=== PATIENT | female | born 1980 | race Caucasian/White ===

== ENCOUNTER 2020-01-12 08:24 | Emergency (ER) | payer OTHER ==
[~2020-01-12] VITALS: Ht 147.3 cm; Wt 52.3 kg
[~2020-01-12 08:24] MED LIST: BAYER CHEWABLE81 MG PO; DILTIAZEM 24HR120 M3; DILTIAZEM 24HR180 M4; IBANDRONATE SO150 MG PO; VITAMIN B-121000 MCG PO; VITAMIN D1000 UNI1 PO
[2020-01-12 08:35] VITALS: Ht 147.3 cm; Wt 52.3 kg
[2020-01-12 09:10] VITALS: BP 116/72
[2020-01-12] MEDS ORDERED: ZANAFLEX2 M1 PO (09:53)
== END 2020-01-12 09:11 | disposition home or self-care (01) ==
LOC: D.ER 08:24
DX: E16.2 Hypoglycemia, unspecified (principal); R53.1 Weakness

== ENCOUNTER 2020-01-12 09:27 | Day surgery (SDC) | payer OTHER ==
[2020-01-10 11:36] LABS: BASOPHILS 0.1 % (0-2); EOSINOPHILS 0.4 % (0-7); HEMATOCRIT 44.6 % (36.0-48.0); HEMOGLOBIN 14.8 g/dL (12-16); IMMATURE GRANULOCYTES 0.4 % (0-5); LYMPHOCYTES 22.8 % (15-50); MCH 35.1 pg (26.0-34.0); MCHC 33.2 g/dL (31.0-37.0); MCV 105.7 fL (80.0-100.0); MEAN PLATELET VOLUME 9.7 fL (7.4-10.4); MONOCYTES 5.8 % (2-11); NEUTROPHILS 70.5 % (40-80); PLATELET COUNT 160 10x3/uL (130-400); RBC 4.22 10x6/uL (4.00-5.40); RDW 13.1 % (11.5-14.5)
[2020-01-10 12:33] LABS: UDS - AMPHET NEGATIVE QUAL (NEGATIVE); UDS - BARB POSITIVE QUAL (NEGATIVE); UDS - BENZO NEGATIVE QUAL (NEGATIVE); UDS - COCAINE NEGATIVE QUAL (NEGATIVE); UDS - OPIATE NEGATIVE QUAL (NEGATIVE); UDS - PCP NEGATIVE QUAL (NEGATIVE); UDS - THC NEGATIVE QUAL (NEGATIVE)
[~2020-01-12] VITALS: Ht 147.3 cm; Wt 51.7 kg
--- NOTE | ~2020-01-12 | OP ---
PATIENT NAME: MANOJ LARIOS MEDICAL RECORD: [id number] :79 LOCATION:D.[facility] ADMISSION DATE: SURGEON: EFRAÍN CAMPOS MD DATE OF OPERATION: 01/12/2020 PREOPERATIVE DIAGNOSIS: Dysfunctional uterine bleeding. POSTOPERATIVE DIAGNOSIS: Dysfunctional uterine bleeding. PROCEDURES: 1. Hysteroscopy. 2. Dilation and curettage. 3. Thermal ablation using NovaSure. SURGEON: Efraín Campos MD ANESTHESIOLOGIST: Dr. Bone. ANESTHETIC: General. FINDINGS: The uterus sounded to 5.5 cm and is 3.5 cm in width in the uterine cavity. Lush endometrium without discrete polypoid masses or abnormal-appearing tissues. Both ostia were identified. Cervix was unremarkable along with the vaginal vault, moderate amount of magaña brown tissue returned at the time of curettage. SPECIMENS REMOVED: Endometrial curetting. SPECIMEN DISPOSITION: Pathology. ESTIMATED BLOOD LOSS: Less than or equal to 75 cc. FLUIDS: 750 cc of lactated Ringer's. URINE OUTPUT: Quantity sufficient void prior to this procedure. COMPLICATIONS: None. DRAINS: None. INDICATIONS: The patient is a 39-year-old female with dysfunctional uterine bleeding. The patient has been offered conservative therapy and after counseling desires thermal ablation using the NovaSure device. The risks, benefits and limitations of this procedure have been described. DESCRIPTION OF PROCEDURE: After informed consent was assured, the patient was taken to the operating room where anesthetic was obtained. The patient was now prepped and draped and has been placed in [facility] stirrups. The operative speculum was now introduced in the vagina. The cervix grasped with a single single-toothed tenaculum, placed on gentle traction and dilated to accommodate a 12-degree hysteroscope. This was passed into the uterine cavity under direct visualization with the above findings. After survey of the uterine cavity was complete, the cervix was dilated further to accommodate a #1 curette. This curette was passed gently to the fundus and then pressure applied against the uterine wall and withdrawn until good cry was obtained. This was performed OPERATIVE REPORT [id number] MANOJ LARIOS throughout the uterine cavity. After sufficient curettage and tissue has been removed from the field and passed to the attendant, the NovaSure device was opened. The NovaSure sound was used to obtain the cavity length. The width was now obtained after placing the NovaSure device inside the uterus and exposing the array. The numbers are placed into the NovaSure device and after a successful test sequence therapy began and completed in 45 seconds. Device was now removed. The cervix has continued bleeding at the puncture site where a single tooth tenaculum held at the 3 o'clock position. A 2-0 chromic was used to obtain hemostasis here. Sponge, lap, and needle counts correct times 2. The patient was awakened and went to the recovery room in stable condition. TRANSINT:[id number] Voice Confirmation ID: [id number] DOCUMENT ID: [id number] EFRAÍN CAMPOS MD CC: [id number] DICTATION DATE: 01/12/20 1217 FUND DEVELOPMENT MANAGER: 01/12/20 1640 [facility] 01/12/20 [facility] [address] [place] [address]
[2020-01-12] MEDS ORDERED: ZANAFLEX2 M1 PO (09:53)
[2020-01-12 09:55] VITALS: BP 128/80; Ht 147.3 cm; Wt 51.7 kg
[2020-01-12 10:22] LABS: HCG URINE NEGATIVE (NEGATIVE)
--- NOTE | 2020-01-12 13:52 | NUR ---
DC INSTRUCTIONS GIVEN TO PT. STATES UNDERSTANDING. WILL CONTINUE TO MONITOR.
--- NOTE | 2020-01-12 14:13 | NUR ---
PT VOIDED. DC'D IV CATH FULLY INTACT.
--- NOTE | 2020-01-12 14:36 | NUR ---
PT READY AT 1415. WAITING FOR FRIEND TO PICK HER UP.
--- NOTE | 2020-01-12 15:10 | NUR ---
PT LEFT UNIT VIA WC AT 1450
== END 2020-01-12 14:50 | disposition home or self-care (01) ==
LOC: D.OPS 09:27 → D.PAN 12:00 → D.OPS 12:00
PROVIDERS: ATTEND Obstetrics & Gynecology
DX: N93.8 Other specified abnormal uterine and vaginal bleeding (principal); I25.2 Old myocardial infarction; N93.9 Abnormal uterine and vaginal bleeding, unspecified

== ENCOUNTER 2020-02-22 10:59 | Outpatient (CLI) | payer OTHER ==
[2020-01-12 09:55] VITALS: BMI 23.8
[~2020-02-22 10:59] MED LIST changes: +ZANAFLEX2 M1 PO
--- NOTE | 2020-02-22 11:00 | NUR ---
DR CAMPOS PHONES UNIT STATING HE IS SENDING PT DOWN FROM CLINIC, ORDER RECEIVED TO DRAW STAT CBC WITH DIFF, STAT EKG, AND CALL WITH RESULTS.
--- NOTE | 2020-02-22 11:12 | NUR ---
LAB TO ROOM TO DRAW STAT CBC. EKG COMPLETED ORDERED. WILL NOTIFY
[2020-02-22 11:25] VITALS: BP 136/69
[2020-02-22 11:29] LABS: HEMATOCRIT 39.9 % (36.0-48.0); HEMOGLOBIN 13.7 g/dL (12-16); MCH 35.4 pg (26.0-34.0); MCHC 34.3 g/dL (31.0-37.0); MCV 103.1 fL (80.0-100.0); PLATELET COUNT 130 10x3/uL (130-400); RBC 3.87 10x6/uL (4.00-5.40); RDW 11.9 % (11.5-14.5); WBC 6.5 10x3/uL (4.8-10.8)
--- NOTE | 2020-02-22 11:50 | NUR ---
DR CAMPOS PHONED WITH CBC RESULTS WELL EKG AND VS. ORDER RECEIVED FOR DISCHARGE TO HOME WITH INSTRUCTIONS TO KEEP F/U APPOINTMENT WITH HIM. INFORMED PT ALSO STATES SHE HAS ECHOCARDIOGRAM SCHED WITH HER CLINICAL STUDY MANAGER TOMORROW. WILL PROCEED WITH DISCHARGE ORDERED.
--- NOTE | 2020-02-22 12:05 | NUR ---
PT GIVEN D/C INSTRUCTIONS WITH APPOINTMENT REMINDER FOR F/U WITH DR CAMPOS. PT VERBALIZES UNDERSTANDING AND DENIES QUESTIONS. PT UP TO DRESS FOR D/C TO HOME.
--- NOTE | 2020-02-22 12:15 | NUR ---
PT OFF UNIT AMBULATORY WITH D/C INSTRUCTIONS IN HAND.
[2020-02-22 14:03] LABS: LYMPHOCYTES 27 % (15-50); MONOCYTES 5 % (2-11); NEUTROPHILS 68 % (40-80); PLATELET ESTIMATE NORMAL
== END 2020-02-22 12:15 | disposition home or self-care (01) ==
LOC: D.LDO 10:59
PROVIDERS: ATTEND Obstetrics & Gynecology
DX: N93.9 Abnormal uterine and vaginal bleeding, unspecified (principal)

== ENCOUNTER 2020-12-11 14:57 | Observation (INO) | payer OTHER ==
[~2020-12-11] VITALS: Ht 147.3 cm; Wt 50.9 kg
--- NOTE | 2020-12-11 15:05 | NUR ---
PT RECEIVED VIA W/C FROM [facility] FOR ADMIT FOR PELVIC PAIN. PT AAOx3, TO BED, TURNS TO LEFT SIDE, GRIMACING AND C/O PAIN. DR CAMPOS PHONES AND SPEAKS WITH ANIMAL HEALTH TECHNICIANHENRY BAY RN AND STATES HE WILL ENTER ORDERS IN [employer].
[2020-12-11 15:42] LABS: BASOPHILS 0.1 % (0-2); EOSINOPHILS 0 % (0-7); HEMATOCRIT 42.3 % (36.0-48.0); HEMOGLOBIN 14.2 g/dL (12-16); IMMATURE GRANULOCYTES 0.1 % (0-5); LYMPHOCYTE ABS# 0.53 10x3/uL (1.18-3.74); LYMPHOCYTES 6.7 % (15-50); MCH 33.7 pg (26.0-34.0); MCHC 33.6 g/dL (31.0-37.0); MCV 100.5 fL (80.0-100.0); MEAN PLATELET VOLUME 10.5 fL (7.4-10.4); MONOCYTES 0.5 % (2-11); NEUTROPHIL ABS# 7.36 10x3/uL (1.56-6.13); NEUTROPHILS 92.6 % (40-80); PLATELET COUNT 150 10x3/uL (130-400); RBC 4.21 10x6/uL (4.00-5.40); RDW 12.5 % (11.5-14.5)
--- NOTE | 2020-12-11 16:15 | NUR ---
18G PIV INITIATED TO PT'S RIGHT WRIST x1 ATTEMPT BY THIS RN. LR FLUID BOLUS INITIATED.
--- NOTE | 2020-12-11 16:20 | NUR ---
PT UP TO BR TO PROVIDE UA PER ORDER WELL FOR URINE PREG TEST PER ORDER.
[2020-12-11 16:24] LABS: ALBUMIN 4.1 g/dL (3.4-5.0); ALKALINE PHOSPHATASE 87 U/L (30-120); ALT (SGPT) 52 U/L (10-68); BILIRUBIN - TOTAL 0.43 mg/dL (0.2-1.3); CALC OSMOLALITY 279 mosm/kg (275-300); CARBON DIOXIDE 27.6 mmol/L (21.0-32.0); CHLORIDE - SERUM 104 mmol/L (98-107); CREATININE - SERUM 0.8 mg/dL (0.6-1.3); GLUCOSE 110 mg/dL (74-106); PROTEIN - SERUM 6.8 g/dL (6.4-8.2); SODIUM 140 mmol/L (136-145); UREA NITROGEN 12 mg/dL (7-18); eGFR NON AFRICAN AMERICAN 84 mL/min (90-120)
--- NOTE | 2020-12-11 16:32 | NUR ---
DEMEROL AND PHENERGAN ADMIN ORDERED FOR PAIN, SEE EMAR FOR DOC. PT RATING PAIN 8/10, GRIMACING AND GUARDING ABD.
--- NOTE | 2020-12-11 16:53 | NUR ---
U/S STAFF TO ROOM FOR ORDERED PELVIC/TRANSVAG U/S. PT VERBALIZES PAIN RELIEF, RATES PAIN 4/10 AT THIS TIME.
--- NOTE | 2020-12-11 17:05 | NUR ---
PT RECEIVED VIA W/C FROM [facility] FOR ADMIT FOR PELVIC PAIN. PT AAOx3, TO BED, TURNS TO LEFT SIDE, GRIMACING AND C/O PAIN. DR CAMPOS PHONES AND SPEAKS WITH RV SERVICE TECHNICIANHENRY BAY RN AND STATES HE WILL ENTER ORDERS IN [employer].
[2020-12-11 17:30] VITALS: BP 115/79
--- NOTE | 2020-12-11 17:30 | NUR ---
VSS, SEE FLOWSHEET FOR DOC.
--- NOTE | 2020-12-11 17:32 | NUR ---
DR CAMPOS PHONES UNIT, STATES HE JUST SPOKE WITH U/S STAFF AND WILL WAIT UNTIL TOMORROW TO TAKE PT TO O.R. ORDER RECEIVED FOR REGULAR DIET, NPO AFTER MIDNIGHT, ZOFRAN IV 4MG Q4HPRN NAUSEA, PERCOCET 5/325MG PO Q4HPRN MILD TO MODERATE PAIN, PERCOCET 10/325MG PO Q4HPRN MOD TO SEVERE PAIN, AND ADMIN 30MG TORADOL IVP x1 NOW. STATES HE IS SIGNING OUT TO DR LUJAN FOR THE NIGHT.
[2020-12-11 17:39] LABS: BILIRUBIN NEGATIVE (NEGATIVE); HCG URINE NEGATIVE (NEGATIVE); KETONE NEGATIVE (NEGATIVE); NITRITE NEGATIVE (NEGATIVE); UROBILINOGEN NORMAL mg/dL (< 2)
--- NOTE | 2020-12-11 18:12 | NUR ---
TORADOL ADMIN IV ORDERED, SEE EMAR FOR DOC. IV FLUSHED AND SALINE LOCKED, UPDATED ON POC, REG DIET AND NOTHING BY MOUTH AFTER MIDNIGHT. UNDERSTANDING VERBALIZED. SRUx2, CL IN REACH.
[2020-12-11 19:50] VITALS: BP 115/79; BP 133/80; Ht 147.3 cm; Wt 50.9 kg
--- NOTE | 2020-12-11 19:50 | NUR ---
ASSESSMENT PER FLOW SHEET, VS OBTAINED, SALINE LOCK IN RIGHT WRIST INTACT COVERED WITH WRAP, PT C/O LOWER RIGHT ABD PAIN, INFORMED PT THAT I WILL ADM PAIN MED WHEN DUE, PT VERBALIZES UNDERSTANDING, PT REPORTS FLATUS, BM TODAY AND VOIDING WITH NO DIFFICULTY, PT REQUESTS SOMETHING TO EAT AND DRINK, INFORMED PT THAT I WILL SEE IF I HAVE A SANDWICH TRAY, PT REPORTS NOT EATING ALL DAY
--- NOTE | 2020-12-11 20:17 | NUR ---
ADM PERCOCET PER MD ORDERS, SEE EMAR, PT SERVED SANDWICH TRAY, H20, AND APPLE JUICE, DENIES FURTHER NEEDS
--- NOTE | 2020-12-11 21:25 | NUR ---
PT FIRE TENDER LIGHT, PT IN TEARS, REPORTS PAIN, REQUESTS TYLENOL, INFORMED PT THAT I WOULD HAVE TO CALL LIGHT THE DOCTOR REGARDING TYLENOL, PT VERBALIZES UNDERSTANDING, PT REPORTS THAT THE PERCOCET MIGHT BE MAKING HER "HURT WORSE" BECAUSE SHE NEEDS TO EAT MORE, PT HAD CONSUMED WHOLE SANDWICH TRAY, PT SERVED PUDDING AND APPLESAUCE
--- NOTE | 2020-12-11 21:30 | NUR ---
DR LUJAN ON L&D UNIT, REPORT OF PT'S PAIN AND REQUEST FOR TYLENOL, DR LUJAN PLACED ORDERS IN COMPUTER
--- NOTE | 2020-12-11 21:50 | NUR ---
PT INFORMED OF ORDERS, PT STATES "OH, I FEEL BETTER NOW, I JUST NEEDED TO EAT MORE BECAUSE OF THAT PAIN PILL", PT REFUSES THE TYLENOL OR PROTONIX AT THIS TIME
--- NOTE | 2020-12-11 22:30 | NUR ---
PT RESTING, REPORTS FEELING MUCH BETTER AND GETTING TIRED, PT REQUESTS PAIN MED WHEN DUE THOUGH, INFORMED PT THAT I TILL BE AROUND MIDNIGHT, PT ALSO INFORMED AGAIN ABOUT NPO AFTER MIDNIGHT, PT VERBALIZES UNDERSTANDING, DENIES NEEDS AT THIS TIME
[2020-12-11 23:44] VITALS: BP 95/73
--- NOTE | 2020-12-11 23:44 | NUR ---
PT SUGAR COATING HAND LIGHT, PT INQUIRES ABOUT PUTTING HER APPLE JUICE IN THE REFRIGERATOR, INFORMED PT THAT I COULD NOT, PT VERBALIZES UNDERSTANDING, VS OBTAINED, PT DENIES PAIN AT THIS TIME, RATES PAIN 0/10, PT REQUESTS NOT TO BE WOKEN UP AT 4AM FOR VITAL SIGNS, PT INST TO USE CALL LIGHT IF SHE WAKES UP FOR NEED OF PAIN MED AND THAT I WILL DUE VITALS AT THAT TIME, PT VERBALIZES UNDERSTANDING, PT INST ON NPO AT MIDNIGHT, PT FINISHES DRINKING APPLE JUICE, CUPS TO TRASH, PT DENIES FURTHER NEEDS
[2020-12-12] VITALS (9 sets, daily range): BP systolic 111–144; BP diastolic 66–87
--- NOTE | 2020-12-12 02:20 | NUR ---
PT RESTING WITH EYES CLOSED, RESP QUIET, NO DISTRESS NOTED, LEFT UNDISTURBED AT THIS TIME
--- NOTE | 2020-12-12 02:36 | NUR ---
PT COBOL PROGRAMMER LIGHT, C/O PAIN, SALINE LOCK FLUSHED, ADM DEMEROL DILUTED IN 5MLS OF NS, SALINE LOCK FLUSHED AFTER MED, PT LENO WELL, VS OBTAINED AT THIS TIME BECAUSE PT REQUESTS NOT TO BE WOKEN UP, PT REQUESTED AND PROVIDED MOUTH MOISTURIZE, DENIES FURTHER NEEDS
--- NOTE | 2020-12-12 04:18 | NUR ---
PT WEB APPLICATION TESTER LIGHT, PT UP TO BR WITH ASSISTANCE, GAIT STEADY, VOIDED LARGE AMOUNT WITH NO DIFFICULTY, PT TO SINK TO WASH HANDS, PT BACK TO BED, DENIES FURTHER NEEDS OR PAIN AT THIS TIME, BED IN LOW POSITION, SIDE RAILS X 2, CALL LIGHT IN REACH
--- NOTE | 2020-12-12 06:23 | NUR ---
PT RESTING WITH EYES CLOSED, RESP QUIET, NO DISTRESS NOTED, LEFT UNDISTURBED AT THIS TIME
--- NOTE | 2020-12-12 07:00 | NUR ---
REPORT RECEIVED FROM Chelsea SALINAS RN.
--- NOTE | 2020-12-12 08:25 | NUR ---
DR. CAMPOS CALLED TO UNIT. STATUS UPDATE GIVEN. NO NEW ORDERS AT THIS TIME. PT REMAINS NPO UNTIL DECISION IS MADE REGARDING POTENTIAL SURGERY.
--- NOTE | 2020-12-12 08:35 | NUR ---
TO ROOM FOR ASSESSMENT. PT. RESTING QUIETLY WITH EYES CLOSED. SEE FLOWSHEET FOR COMPLETE ASSESSMENT. PT STATES SHE IS HAVING DULL PAIN IN RIGHT LOWER ABDOMEN, BUT DENIES PAIN MEDICATION AT THIS TIME. NO OTHER NEEDS VOICED AT THIS TIME.
--- NOTE | 2020-12-12 09:43 | NUR ---
DR. CAMPOS HERE TO SEE PT.
--- NOTE | 2020-12-12 10:00 | NUR ---
CONSENTS OBTAINED AND WITNESSED.
--- NOTE | 2020-12-12 12:45 | NUR ---
PT RESTING QUIETLY ON LEFT SIDE WITH EYES CLOSED. PRE OP MEDICATIONS GIVEN.
[2020-12-12] MEDS ORDERED: TIAZAC120 MG (12:48)
--- NOTE | 2020-12-12 13:54 | NUR ---
PT TO SURGERY VIA BED ACCOMPANIED BY SURGERY STAFF.
--- NOTE | 2020-12-12 16:10 | NUR ---
RECEIVED PATIENT FROM PACU VIA BED ACCOMPANIED BY PACU STAFF. PT DROWSY, BUT AWAKE AND ORIENTED X3. IV INFUSING TO GAVITY; IV PLACED TO IVP AT 150CC/HR. LAPROSCOPIC INCISIONS @ UMBILICUS AND ABDOMEN CDI WITH DERMABOND. PT SIPPING WATER AND TOLERATING WELL. PT C/O SCRATCHY, SORE THROAT. NO NEEDS OR CONCERNS VOICED AT THIS TIME.
--- NOTE | 2020-12-12 17:54 | NUR ---
PT SITTING UP IN BED EATING DINNER. NO NEEDS VOICED AT THIS TIME.
--- NOTE | 2020-12-12 19:00 | NUR ---
SHIFT REPORT GIVEN BY HENRY CAMERON
--- NOTE | 2020-12-12 19:05 | NUR ---
WALKING ROUNDS MADE. EXPLAINED TO PT THAT I WOULD BE BACK IN A FEW MINUTES TO ADDRESS HER NEEDS SINCE WE WERE IN REPORT.
--- NOTE | 2020-12-12 19:20 | NUR ---
IN PT ROOM. SHE WANTS TO TAKE A SHOWER. I TOOK HER TOWEL AND WASHCLOTHS AND ALL THE AMENITIES WE HAD FOR HER SINCE SHE CAME TO THE HOSPITAL FROM THE CLINIC YESTERDAY. SHE SPENT MANY MINUTES TELLING ME ABOUT HER VARIOUS PAINS. SHE WAS TEXTING ON HER CELL PHONE MOST OF THE TIME SHE WAS TALKING TO ME. I DISCONNECTED HER IV FLUIDS WHILE SHE TOOK HER SHOWER. SHE STATES SHE DOES NOT NEED ANY HELP. SHOWED HER THE CALL LIGHT IN THE BR IN CASE SHE NEEDED TO CALL.
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
--- NOTE | 2020-12-12 21:05 | NUR ---
PT CALLED ME TO HER ROOM STATING THAT SHE HAS TERRIBLE GAS PAIN. I TOLD HER THIS MAY BE DUE TO THE GAS THAT WAS USED IN SURGERY TO VISUALIZE HER ORGANS BETTER. I TOLD HER THE CURE FOR THAT WAS WALKING. PT GOT UP AND WALKED THE HALLS FOR ABOUT 15 MIN.
--- NOTE | 2020-12-12 22:00 | NUR ---
PT IS RESTING QUIETLY IN BED. HER CALL LIGHT IS WITHIN REACH AND HER SIDERAILS ARE UP X 2. PT DOES NOT C/O OF PAIN NOW.
--- NOTE | 2020-12-12 22:45 | NUR ---
PT CALLED ME TO HER ROOM AND SAID THAT SINCE SHE WAS STILL HURTING SO BAD SHE'D LIKE TO HAVE A PAIN PILL AND HER SLEEPINGN PILL. THESE WERE GIVEN PO. FAR I CAN TELL HER PAIN WAS THE SAME GAS PAIN SHE HAD EARLIER.
--- NOTE | 2020-12-12 23:30 | NUR ---
PT ACCIDENTALLY HIT HER CALL LIGHT. WHEN I WENT TO ANSWER HER LIGHT, SHE TOLD ME SHE HIT THE BUTTON ACCIDENTALLY TRYING TO TURN THE TV OFF. SHE IS VERY GROGGY. SHE DID GET THE TV TURNED OFF. I TOLD HER TO JUST LAY BACK IN BED AND SLEEP. SHE STATES THAT IS WHAT SHE IS GOING TO DO.
[2020-12-13 00:01] VITALS: BP 126/66
--- NOTE | 2020-12-13 02:27 | NUR ---
PT UP TO BR. SHE IS VOIDING WELL. SHE STATES SHE HAS BLADDER LEAKAGE. I GOT HER SOME PADS AND A PAIR OF PANTIES. PT HAS NO C/O AT THIS TIME. SHE STATES SHE IS GOING BACK TO SLEEP.
--- NOTE | 2020-12-13 04:00 | NUR ---
PT IS SLEEPING SOUNDLY. DID NOT WAKE HER FOR VS.
--- NOTE | 2020-12-13 06:18 | NUR ---
PT CONTINUES TO SLEEP SOUNDLY. NO C/O AT THIS TIME. NO NEEDS
--- NOTE | 2020-12-13 08:33 | NUR ---
DR CAMPOS AT BEDSIDE.
--- NOTE | 2020-12-13 08:40 | NUR ---
AM ASSESSMENT COMPLETED CHARTED TO FLOWSHEET. PT COMPLAINS OF RIGHT UPPER CHEST/SHOULDER PAIN EXPLAINED DID DR CAMPOS THIS COULD BE GAS FROM SURGERY YESTERDAY AND COULD BE RELIEVED WITH WALKING. IV REMOVED AT THIS TIME WITH CATH INTACT. PT DENIES PAIN OR DISCOMFORT AND HAS GOTTEN SELF TO SITTING ON SIDE OF BED TO EAT BREAKFAST.
--- NOTE | 2020-12-13 08:57 | NUR ---
DR GAVIN CALLS WITH ORDER FOR FSBS, PT STATES THAT SHE HAS NOT YET EATEN BREAKFAST.
[2020-12-13 09:00] VITALS: BP 123/74
--- NOTE | 2020-12-13 10:01 | NUR ---
CALLED TO ROOM TO ADJUST TEMP, PT STATES SHE IS COLD. TEMP IS 98.6 ORALLY. LARGE ICE WATER REQUESTED.
--- NOTE | 2020-12-13 11:20 | NUR ---
PT UP PER SELF AND WALKS FROM HER ROOM TO WAITING AREA X 2. CONTINUE TO DENY NEED FOR PAIN MED AND STATES THAT SHE STILL HAVING SOME DISCOMFORT IN RIGHT SHOULDER/UPPER CHEST BUT NOT BAD THIS AM. DENIES PASSING GAS AT THIS TIME.
--- NOTE | 2020-12-13 12:42 | NUR ---
DR CAMPOS AT BEDSIDE TALKING WITH PATIENT ABOUT SHOULDER PAIN AND DISCHARGE.
[2020-12-13] MEDS ORDERED: DILAUDID2 MG PO (12:49)
[2020-12-13] MEDS ORDERED: TORADOL10 MG PO (12:50)
--- NOTE | 2020-12-13 12:54 | NUR ---
SALES REVIEW CLERK NOTIFIED FOR [employer] VOUCHER, PT DOES NOT HAVE FAMILY OR ANYONE IN AREA THAT COULD COME GIVE HER A RIDE HOME. INSTRUCTED TO CALL CASE MANAGEMENT.
--- NOTE | 2020-12-13 13:30 | NUR ---
CASE MANAGEMENT ARRANGING [employer]AXI TO TAKE HER HOME. VERBAL AND WRITTEN DISCHARGE ORDERS GONE OVER WITH NO QUESTIONS. WRITTEN SCRIPTS GIVEN FOR DILAUDID 2MG AND TORDAL 10MG WITH INFO ON EACH. WORK EXCUSE REFAXED TO HER EMPLOYER.
--- NOTE | 2020-12-13 13:40 | NUR ---
TAKEN OUT BY WHEELCHAIR, HOME BY TAXI.
--- NOTE | 2020-12-20 14:07 | OP ---
PATIENT NAME: MANOJ LARIOS MEDICAL RECORD: [id number] :78 LOCATION:[facility]1220 ADMISSION DATE:12/11/20 SURGEON: EFRAÍN MOTA MD DATE OF OPERATION: 12/11/2020 DATE OF SERVICE: 12/11/2020 PREOPERATIVE DIAGNOSIS: Pelvic pain. POSTOPERATIVE DIAGNOSES: 1. Pelvic pain. 2. Suspect adenomyosis. 3. Endometriosis. PROCEDURE PERFORMED: Diagnostic laparoscopy. SURGEON: Efraín Mota MD ANESTHESIOLOGIST: Dr. Guan. ANESTHETIC: General. FINDINGS: The uterus is enlarged and boggy consistent with adenomyosis. There are endometrial implants noted on the right and left sidewalls and uterosacral ligaments. There are no adhesions and what was visualized of the abdominal anatomy is unremarkable. SPECIMENS REMOVED: None applicable. ESTIMATED BLOOD LOSS: Minimal. FLUIDS: 700 mL of lactated Ringer's. URINE OUTPUT: Quantity sufficient void prior to this procedure. COMPLICATIONS: None. DRAINS: None. INDICATIONS: The patient is a 40-year-old female who was admitted the night before the procedure with subacute pelvic pain. The patient states that this pain occurs every month at the time of her cycle. This has been worsening over the last few months. The patient is consented for diagnostic laparoscopy and any indicated procedure. DESCRIPTION OF PROCEDURE: After informed consent was assured, the patient was taken to the operating room where anesthetic was obtained. With the patient supine on the table, incision was made to accommodate a 5-mm trocar, which was inserted without difficulty. Pneumoperitoneum was established and the patient was placed in Trendelenburg position. Accessory ports were now placed 2 fingerbreadths above the symphysis in the midline. Using a blunt probe, the bowel was manipulated free of the pelvis with the above findings. After visualization of the pelvis and the abdomen, the pneumoperitoneum was released and the accessory trocar removed under direct visualization. The primary trocars were removed and both sites were closed with a subcuticular stitch and OPERATIVE REPORT [id number] MANOJ LARIOS Dermabond was applied. Sponge, lap, and needle counts were correct times 2. TRANSINT:[id number] Voice Confirmation ID: [id number] DOCUMENT ID: [id number] EFRAÍN MOTA MD at 0169 CC: [id number] DICTATION DATE: 12/20/20 1321 ENVIRONMENTAL CONSERVATION PROFESSOR: 12/20/20 1354 DIS IN 12/13/20 [place] [id number] [place] [id number]
== END 2020-12-13 13:56 | disposition home or self-care (01) ==
LOC: D.WS 14:57 → OBSVTIME 14:57 → D.WS 12-13 13:56
PROVIDERS: Obstetrics & Gynecology; ADMIT Student in an Organized Health Care Education/Training Program; ATTEND Student in an Organized Health Care Education/Training Program
DX: N80.0 Endometriosis of uterus (principal); N80.9 Endometriosis, unspecified; R07.9 Chest pain, unspecified

== ENCOUNTER 2020-12-15 14:42 | Emergency (ER) | payer OTHER ==
[~2020-12-15] VITALS: Ht 147.3 cm; Wt 50.9 kg
[~2020-12-15 14:42] MED LIST changes: +DILAUDID2 MG PO; +TIAZAC120 MG; +TORADOL10 MG PO
[2020-12-15 14:50] VITALS: BP 95/64; Ht 147.3 cm; Wt 50.9 kg
[2020-12-15 15:17] LABS: BASOPHILS 0.2 % (0-2); EOSINOPHILS 0.5 % (0-7); HEMATOCRIT 40.6 % (36.0-48.0); HEMOGLOBIN 13.7 g/dL (12-16); IMMATURE GRANULOCYTES 0.6 % (0-5); LYMPHOCYTE ABS# 4.17 10x3/uL (1.18-3.74); LYMPHOCYTES 35.7 % (15-50); MCH 33.8 pg (26.0-34.0); MCHC 33.7 g/dL (31.0-37.0); MCV 100.2 fL (80.0-100.0); MEAN PLATELET VOLUME 10.6 fL (7.4-10.4); MONOCYTES 8.3 % (2-11); NEUTROPHIL ABS# 6.38 10x3/uL (1.56-6.13); NEUTROPHILS 54.7 % (40-80); PLATELET COUNT 165 10x3/uL (130-400); RBC 4.05 10x6/uL (4.00-5.40); RDW 12.6 % (11.5-14.5); WBC 11.7 10x3/uL (4.8-10.8)
[2020-12-15 15:22] LABS: BILIRUBIN NEGATIVE (NEGATIVE); KETONE NEGATIVE (NEGATIVE); NITRITE NEGATIVE (NEGATIVE); UROBILINOGEN NORMAL mg/dL (< 2)
[2020-12-15 15:24] LABS: BACTERIA FEW HPF (NONE SEEN); SQUAMOUS EPITHELIAL 0-5 HPF (0-4); WHITE CELLS - URINE 0-5 HPF (0-4)
[2020-12-15 15:28] LABS: ANION GAP 14.1 mmol/L (8-16); CALCIUM 9.2 mg/dL (8.5-10.1); CARBON DIOXIDE 27.5 mmol/L (21.0-32.0); CREATININE - SERUM 1.1 mg/dL (0.6-1.3); POTASSIUM - SERUM 3.6 mmol/L (3.5-5.1)
[2020-12-15 15:47] LABS: ALBUMIN 3.6 g/dL (3.4-5.0); BILIRUBIN - TOTAL 0.2 mg/dL (0.2-1.3); PROTEIN - SERUM 6.7 g/dL (6.4-8.2)
[2020-12-15 15:56] LABS: HCG URINE NEGATIVE (NEGATIVE)
== END 2020-12-15 17:58 | disposition home or self-care (01) ==
LOC: D.ER 14:42
PROVIDERS: Family Medicine
DX: R10.30 Lower abdominal pain, unspecified (principal); G89.18 Other acute postprocedural pain